=== PATIENT | male | born 1980 | race Caucasian/White ===

== ENCOUNTER 2019-07-19 12:42 | Emergency (ER) | payer OTHER, MEDICARE, SELFPAY ==
[2019-07-19 12:55] VITALS: BP 127/89; PULSE 60; RESP 16; TEMP 36.6; O2SAT 98; BMI 33.1
--- NOTE | 2019-07-19 13:04 | XR_ITS ---
WS: [id number] PORTABLE CHEST HISTORY: cough COMPARISON: 08/29/2013 Lungs are clear and well expanded. No pleural effusion or pneumothorax. Cardiac size: Normal. Mediastinum/Aorta: Normal mediastinum. No osseous abnormality seen. XR/XR chest 1V portable [id number] IMPRESSION: Unremarkable portable chest.
--- NOTE | 2019-07-19 13:05 | ECG_ITS ---
Measurements Intervals [place] Rate: 72 P: 55 [place]: 126 QRS: 26 QRSD: 109 T: -6 QT: 372 QTc: 408 SINUS RHYTHM WITH SINUS ARRHYTHMIA NONSPECIFIC T-WAVE ABNORMALITY Compared to ECG 12/02/2014 10:02:15 T-wave abnormality now present Electronically Signed On 07-19-2019 20:33:02 CDT by Josemanuel Freeman M.D. [id number] f
--- NOTE | 2019-07-19 13:12 | W.ED.CHESTPA ---
HPI - Chest Pain General: Chief Complaint: Chest Pain Stated Complaint: CP Time Seen by Provider: 07/19/19 13:04 History of Present Illness: HPI narrative: David is a very nice 38-year-old male who comes in complaining of right-sided chest pain. He describes the pain as a throbbing sensation. It has been constant and never gone away in the past 3 days. It does not wax and wane in intensity and stays the same. There are no exacerbating or alleviating factors. He states he has had similar symptoms over the past year and a half but nothing like the past 3 days. The patient states it hurts more to smoke upon further questioning but nothing makes it better. Patient denies any fevers, chills, hemoptysis, unexplained weight loss or other complaints. The patient simply went to the [facility] today for [facility] to help [facility]. He denies history of heart disease, family history of heart problems and he personally denies a history of DVT/PE. Associated symptoms: Deny abdominal pain, diaphoresis, dyspnea, fever(s), nausea, palpitations, syncope or vomiting Review of Systems Const: Denies: fever(s), chills, body aches, fatigue, malaise, night sweats or diaphoresis Eyes: Denies: change in vision, blurry vision or blind spots ENMT: Denies: throat pain, odynophagia, hoarseness, ear or mastoid pain, ear discharge, change in hearing or nasal discharge Card: Reports: chest pain; Denies: palpitations, irregular heart rhythm, lightheadedness, syncope, pre-syncope, dyspnea on exertion or orthopnea Resp: Denies: dyspnea, productive cough, non-productive cough, wheezing, hemoptysis or chest congestion GI: Denies: abdominal pain, nausea, vomiting, hematemesis, coffee ground emesis, heartburn, diarrhea, constipation, GI cramping, hematochezia or melena : Denies: flank pain, dysuria, urinary frequency, urinary urgency, oliguria, urinary incontinence or hematuria Musc: Denies: neck pain, back pain, extremity pain, extremity swelling, joint pain, joint swelling, joint redness, joint warmth or joint stiffness Skin/Breast: Denies: rash, pruritus, erythema, skin tenderness or jaundice Neuro: Denies: headache(s), numbness in extremities, weakness in extremities, sensory changes, lack of coordination, difficulty walking, dizziness, vertigo, confusion or Slurred speech present Endo: Denies: polyuria, polydipsia, tired all the time, cold intolerance, excessive sweating, flushing, hot flashes or heat intolerance Chinedu/Lymph: Denies: easy bruising, easy bleeding, petechiae, purpura or enlarged lymph nodes All/Imm: Denies: urticaria, throat swelling, tongue swelling, facial swelling or acute wheezing PFSH ED PFSH: Medical History (Updated 07/19/19 @ 13:57 by Ameena Willett) Hyperlipidemia Family History (Updated 07/19/19 @ 13:14 by Ameena Willett) Denies family history of CAD (coronary artery disease) Family history of premature coronary artery disease Social History Smoking and tobacco status: current every day smoker Physical Exam Const: COMMON NORMALS: no acute distress, patient oriented x3, no limitations, healthy appearing and well nourished EXAM LIMITATIONS: no altered mental status GENERAL APPEARANCE: cooperative, well kempt and well developed HENMT: COMMON NORMALS: normocephalic, atraumatic, hearing grossly normal bilaterally, external ears normal, EAC's normal, Normal external nose present and moist oral mucous membranes HEAD & SCALP: normal to inspection, normocephalic and atraumatic FACE & SINUS: normal facial exam and face symmetric NOSE: Normal external nose present and Normal nares present EXTERNAL EAR: Yes external ears normal EXTERNAL AUDITORY CANAL: EAC's normal MOUTH: Normal oral and palatal mucosa present, lip normal and tongue normal Eye: COMMON NORMALS: Equal, round and reactive pupils present, EOMs intact bilaterally, conjunctivae normal and no scleral icterus GENERAL EYE: appearance normal, both eyes and all related structures and normal light reflex ALIGNMENT: Yes alignment normal PERIORBITAL: periorbital findings normal EYELID: eyelids normal CONJUNCTIVA: Yes conjunctivae normal SCLERA: sclerae normal PUPIL: Yes Equal, round and reactive pupils present DIRECT OPHTHALMOSCOPY: Yes normal light reflex Neck/C-Spine: COMMON NORMALS: full ROM, no lymphadenopathy, supple, no meningeal signs and no JVD GENERAL: Yes normal visual inspection and Yes trachea midline CERVICAL SPINE: Yes cervical ROM normal Chest: COMMONS NORMALS: normal inspection of the chest and normal palpation of entire chest wall Resp: COMMON NORMALS: normal respiratory effort, No retractions, No use of accessory muscles and clear to auscultation bilaterally EFFORT & INSPECTION: Yes able to speak in complete sentences AUSCULTATION: clear to auscultation bilaterally, no crackles, no rales, no rhonchi and no wheezes Cardio: COMMON NORMALS: no JVD, regular rate, regular rhythm, S1 normal heart sound present, S2 normal heart sound present, No gallops present (Cardio), No clicks present (Cardio), No murmurs present (Cardio) and No rub (Cardio) RATE: regular rate RHYTHM: regular rhythm HEART SOUNDS: S1 normal heart sound present, S2 normal heart sound present, no click, no gallops, no murmurs and no rubs GI: COMMON NORMALS: Soft to palpation, non-tender, No hepatosplenomegaly present and no masses PALPATION: Yes Soft to palpation, No Tenderness to palpation present (GI), No Guarding due to palpation present (GI), No Rigid due to palpation, Yes No hepatosplenomegaly present, No Hernia present, No Palpable mass present and No Pulsatile mass present : COMMON NORMALS: Yes no CVA tenderness BLADDER/KIDNEY EXAM: Yes no CVA tenderness Back/Pelvis: COMMON NORMALS: no CVA tenderness, thoracic and lumbar spine normal to inspection, no thoracic nor lumbar tenderness and thoraco-lumbar ROM normal Extremity: COMMON NORMALS: normal to inspection, full ROM, capillary refill normal, no joint enlargement, no clubbing, cyanosis or edema and no calf tenderness Neuro: LEONOR COMA SCALE: document GCS findings [place] coma scale eye opening: Spontaneous [place] coma scale verbal response: Orientated [place] coma scale motor response: Obey commands [place] coma scale total score: 15 COMMON NORMALS: patient oriented x3, CN's II-XII intact bilaterally, moves all extremities, no focal motor deficits and no sensory deficits noted MENINGEAL SIGNS: Yes no meningeal signs SPEECH: speech normal Psych: COMMON NORMALS: mental status grossly normal, Normal thought process present, cooperative, normal affect, speech normal and activity/motor behavior normal APPEARANCE: Yes well kempt SPEECH: Yes normal speech THOUGHT PROCESS: Normal thought process present Skin: COMMON NORMALS: no rashes or lesions noted, turgor normal, no jaundice, no petechiae and no mottling GENERAL SKIN EXAM: no rashes or lesions noted and turgor normal Course Vital Signs: Vital signs: Vital Signs Temperature 97.8 F 07/19/19 12:55 Pulse Rate 58 L 07/19/19 13:52 Respiratory Rate 16 07/19/19 13:52 Blood Pressure 139/87 07/19/19 13:52 Pulse Oximetry 98 07/19/19 13:52 MDM - Chest Pain MDM Narrative: Medical decision making narrative: Mr. Ordoñez is a nice 38-year-old male who comes in with constant chest pain in his right chest for the past 3 days. He has a normal EKG and normal troponin which per hospital protocol and per literature rules out his heart as a cause. The patient is PERC rule negative. He declines any further evaluation care and would like to be discharged. Patient has no description of ripping or tearing or migration of pain in the timing of his chest pain rules out a dissection. PE has been ruled out by the PERC rule. Per hospital protocol the the patient has been ruled out for ACS. Patient agrees to return should his symptoms change or worsen but he wants to follow-up with his doctor for recheck. Lab Data: Labs: Lab Results 07/19/19 07/19/19 07/19/19 Range/Units 13:14 13:14 13:14 WBC 6.7 (4.0-10.0) 10^3/ uL RBC 5.31 H (4.1-5.3) 10^6/u L Hgb 16.9 H (11.7-16.6) g/dL Hct 51.1 (42.0-52.0) % MCV 96.2 H (80-94) fL MCH 31.8 (28.0-34.0) pg MCHC 33.1 (30.0-36.0) g/dL RDW 12.0 L (12.1-15.1) % Plt Count 174 (130-400) 10^3/c mm MPV 10.9 H (7.4-10.4) fL Neut % (Auto) 63.7 % Lymph % (Auto) 28.2 % Andrews % (Auto) 6.4 % Eos % (Auto) 1.0 % Baso % (Auto) 0.4 % Neut # (Auto) 4.3 (1.8-7.7) 10^3/u L Lymph # (Auto) 1.9 (0.8-4.8) 10^3/u L Andrews # (Auto) 0.4 (0.2-0.9) 10^3/u L Eos # (Auto) 0.1 (0.0-0.8) 10^3/u L Baso # (Auto) 0.0 (0.0-0.1) 10^3/u L Nucleated RBC % (a uto) 0 % Nucleated RBCs # 0.0 /100WBC Sodium 138 (136-145) mmol/L Potassium 4.2 (3.5-5.1) mmol/L Chloride 102 (98-107) mmol/L Carbon Dioxide 26 (22-29) mmol/L Anion Gap 14.2 (5-19) BUN 16 (6-20) mg/dL Creatinine 1.0 (0.7-1.2) mg/dL GFR Calculation 82.8 L (90-130) mL/min Glucose 101 (65-115) mg/dL Calculated Osmolal ity 282 L (285-295) mOsm/k g Calcium 10.7 H (8.5-10.5) mg/dL Magnesium 2.1 (1.7-2.3) mg/dL Total Bilirubin 0.4 (0.15-1.2) mg/dL AST 15 (0-40) U/L ALT 26 (0-41) U/L Alkaline Phosphata se 65 (40-130) IU/L Troponin T Baselin e 6 (0-15) ng/mL Total Protein 7.9 (6.6-8.7) g/dL Albumin 4.8 (3.5-5.2) g/dL Globulin 3.1 (1.3-4.6) g/dL Lipase 22 (13-60) U/L Imaging Data^: CXR: My impression: No acute cardiopulmonary findings. EKG Data^: EKG 1: Attestation: I personally reviewed and interpreted this EKG as follows: EKG interpretation date: 07/19/19 EKG interpretation time: 12:51 Interpretation: Normal sinus rhythm with sinus arrhythmia at 72 beats a minute, normal axis, no acute ST or T wave changes. Discharge Plan Discharge Patient Disposition: Home, Self-Care Clinical Impression: Chest pain Qualifiers: Chest pain type: unspecified Qualified Code(s): R07.9 - Chest pain, unspecified Condition: Stable Discharge Orders: Discharge Order (Routine); Ordered 07/19/19 Ordered By: Ameena Willett Referrals: Driss Gill DO [Primary Care Provider] - 1-3 days Discharge Diet: Advance as tolerated Discharge Activity: Increase activity as tolerated Patient Instructions: Chest Pain (ED) Activity Restrictions/Additional Instructions: Please return to the ER immediately for any of the signs or symptoms listed on your discharge instruction sheets, worsening/changing of your symptoms, you are not getting better as quickly as expected, or for ANY other cause or concerns. You have been offered further evaluation and care of your heart but have declined. If you change your mind or your symptoms change/worsen you are welcome to return here at any time for further evaluation and care. Be certain to follow-up with Dr. Gill in the next 1 to 2 days for recheck. Coding Level of Care Code ED Leather Scraper for Neri Fwd Exam Comprehensive
[2019-07-19 13:25] LABS: Basophils % 0.4 %; Eosinophils # 0.1 10^3/uL (0.0-0.8); Hematocrit 51.1 % (42.0-52.0); Hemoglobin 16.9 g/dL (11.7-16.6); Lymphocytes # 1.9 10^3/uL (0.8-4.8); Lymphocytes % 28.2 %; Mean Corpuscular HGB Conc 33.1 g/dL (30.0-36.0); Mean Corpuscular Hemoglobin 31.8 pg (28.0-34.0); Mean Corpuscular Volume 96.2 fL (80-94); Mean Platelet Volume 10.9 fL (7.4-10.4); Monocytes # 0.4 10^3/uL (0.2-0.9); Monocytes % 6.4 %; Neutrophils # 4.3 10^3/uL (1.8-7.7); Neutrophils % 63.7 %; Nucleated Red Blood Cells % 0 %; Platelet Count 174 10^3/cmm (130-400); Red Blood Count 5.31 10^6/uL (4.1-5.3); White Blood Count 6.7 10^3/uL (4.0-10.0)
[2019-07-19 13:35] LABS: Alanine Aminotransferase 26 U/L (0-41); Albumin Level 4.8 g/dL (3.5-5.2); Alkaline Phosphatase 65 IU/L (40-130); Anion Gap 14.2 (5-19); Aspartate Amino Transferase 15 U/L (0-40); Blood Urea Nitrogen 16 mg/dL (6-20); Calcium 10.7 mg/dL (8.5-10.5); Carbon Dioxide 26 mmol/L (22-29); Chloride 102 mmol/L (98-107); Globulin 3.1 g/dL (1.3-4.6); Glomerular Filtration Rate 82.8 mL/min (90-130); Glucose 101 mg/dL (65-115); Lipase 22 U/L (13-60); Magnesium 2.1 mg/dL (1.7-2.3); Osmolality Calculated 282 mOsm/kg (285-295); Potassium 4.2 mmol/L (3.5-5.1); Sodium 138 mmol/L (136-145); Total Bilirubin 0.4 mg/dL (0.15-1.2); Total Protein 7.9 g/dL (6.6-8.7)
[2019-07-19 13:39] LABS: Troponin(5th) Baseline 6 ng/mL (0-15)
[2019-07-19] MEDS: aspirin 325 mg Tablet PO (13:51)
[2019-07-19 13:52] VITALS: BP 139/87; PULSE 58; RESP 16; O2SAT 98
== END 2019-07-19 14:24 | disposition home or self-care (01) ==
PROVIDERS: Emergency Provider Emergency Medicine; PCP Electrodiagnostic Medicine
DX: R07.9 Chest pain, unspecified (principal); E78.5 Hyperlipidemia, unspecified; F17.210 Nicotine dependence, cigarettes, uncomplicated
CPT/HCPCS: 12345; 36415; 71045; 80053; 83690; 83735; 84484; 85025; 93005; 99282; 99284

== ENCOUNTER 2020-07-08 21:14 | Emergency (ER) | payer MEDICARE, OTHER, SELFPAY ==
[2020-07-08 22:17] VITALS: BP 136/74; PULSE 87; RESP 19; TEMP 36.6; O2SAT 96; BMI 32.8
--- NOTE | 2020-07-08 22:55 | W.ED.ABDPA2 ---
HPI - Abdominal Pain General: Chief Complaint: Abdominal Pain Stated Complaint: ab pain Time Seen by Provider: 07/08/20 22:49 History of Present Illness: HPI narrative: Patient is a 39-year-old male comes to the ED with abdominal pain nausea and vomiting. Patient says symptoms started this morning and have progressively gotten worse. He has not been able to keep any food or fluids down and tried to take his Phenergan today and he was not able to keep that down as well. The pain is located in the upper abdomen. Patient says he has never had abdominal pain like this before. He does have a history of acid reflux. Denies any fever, chills, diarrhea constipation. Associated Symptoms: Reports nausea and vomiting; Denies chills, constipation, diarrhea, dysuria, fever(s), hematochezia and hematuria Review of Systems Const: Denies: fever(s), chills or fatigue Eyes: Denies: change in vision or eye discomfort ENMT: Denies: throat pain, odynophagia, nasal discharge or nasal congestion Card: Denies: chest pain, palpitations, edema, swelling of feet/ankles, dyspnea on exertion or orthopnea Resp: Denies: dyspnea, productive cough or non-productive cough GI: Reports: abdominal pain, nausea and vomiting; Denies: diarrhea, constipation or hematochezia : Denies: flank pain, difficulty urinating, dysuria or hematuria Musc: Denies: neck pain, back pain or extremity swelling Skin/Breast: Denies: rash or new lesions Neuro: Denies: headache(s), numbness in extremities or weakness in extremities PFSH ED PFSH: Medical History Anxiety disorder Hyperlipidemia Major depressive disorder PTSD (post-traumatic stress disorder) Surgical History History of appendectomy Family History Denies family history of CAD (coronary artery disease) Anesthesia complication Bleeding disorder Family history of premature coronary artery disease Social History Smoking and tobacco status: current every day smoker Alcohol intake: current Alcohol intake frequency: holidays/special occasions only Physical Exam Const: COMMON NORMALS: no acute distress, patient oriented x3, healthy appearing and alert GENERAL APPEARANCE: cooperative and comfortable HENMT: COMMON NORMALS: normocephalic HEAD & SCALP: normocephalic MOUTH: Normal oral and palatal mucosa present THROAT: posterior oropharynx normal and uvula midline Neck/C-Spine: COMMON NORMALS: supple GENERAL: Yes normal visual inspection Resp: COMMON NORMALS: normal respiratory effort, No retractions, No use of accessory muscles and clear to auscultation bilaterally AUSCULTATION: clear to auscultation bilaterally Cardio: COMMON NORMALS: regular rate, regular rhythm, S1 normal heart sound present, S2 normal heart sound present, No gallops present (Cardio), No clicks present (Cardio), No murmurs present (Cardio) and Peripheral pulses 2+ throughout RATE: regular rate RHYTHM: regular rhythm HEART SOUNDS: S1 normal heart sound present and S2 normal heart sound present PERIPHERAL PULSES: Peripheral pulses 2+ throughout GI: COMMON NORMALS: Normal to inspection, nondistended, normoactive bowel sounds present, Soft to palpation and no masses PALPATION: Yes Soft to palpation and Yes Tenderness to palpation present (GI) Details: RUQ (Positive Michael sign) and other (Epigastric region) : COMMON NORMALS: Yes no CVA tenderness BLADDER/KIDNEY EXAM: Yes no CVA tenderness Back/Pelvis: COMMON NORMALS: no CVA tenderness Extremity: COMMON NORMALS: normal to inspection and no pedal edema Neuro: COMMON NORMALS: patient oriented x3 SENSORIUM/ORIENTATION: Yes alert GAIT: Yes Normal gait present Skin: GENERAL SKIN EXAM: dry skin Course Reevaluation(s): Reevaluation #1: Patient's symptoms resolved after IV fluids, Zofran, Dilaudid. Patient was resting comfortably on the exam bed. Vital Signs: Vital signs: Vital Signs Temperature 97.9 F 07/08/20 22:17 Pulse Rate 66 07/09/20 01:48 Respiratory Rate 16 07/09/20 01:48 Blood Pressure 115/68 07/09/20 01:48 Pulse Oximetry 97 07/09/20 01:48 MDM - Abdominal Pain MDM Narrative: Medical decision making narrative: Patient is a 39-year-old male who comes to the ED with some abdominal pain nausea vomiting. Vitals are stable and exam showed some right upper quadrant and upper abdominal tenderness in epigastric region. White blood cell count 12.2 and the rest of CBC and CMP were unremarkable. H. pylori negative. ultrasound of gallbladder showed no acute gallbladder findings and no sludge or stones seen. CBD was normal. CT of abdomen pelvis showed some mild descending and sigmoid colitis. Patient was diagnosed with colitis and gastritis and discharged home with a prescription for ciprofloxacin, Flagyl, Pepcid and Zofran. He was told to follow-up with his PCP in 7 to 10 days for reevaluation. Return to ED precautions given. Patient understood and agreed with plan. Lab Data: Attestation: I reviewed the patient's lab results. Labs: Lab Results 07/08/20 07/08/20 07/08/20 Range/Units 23:14 23:14 23:15 WBC 12.2 H (4.0-10.0) 10^3/ uL RBC 5.13 (4.1-5.3) 10^6/u L Hgb 16.2 (11.7-16.6) g/dL Hct 48.2 (42.0-52.0) % MCV 94.0 (80-94) fL MCH 31.6 (28.0-34.0) pg MCHC 33.6 (30.0-36.0) g/dL RDW 12.2 (12.1-15.1) % Plt Count 194 (130-400) 10^3/c mm MPV 10.1 (7.4-10.4) fL Neut % (Auto) 76.3 % Lymph % (Auto) 16.6 % [place] % (Auto) 5.6 % Eos % (Auto) 0.7 % Baso % (Auto) 0.4 % Neut # (Auto) 9.33 H (1.8-7.7) 10^3/u L Lymph # (Auto) 2.0 (0.8-4.8) 10^3/u L [place] # (Auto) 0.7 (0.2-0.9) 10^3/u L Eos # (Auto) 0.1 (0.0-0.8) 10^3/u L Baso # (Auto) 0.1 (0.0-0.1) 10^3/u L Nucleated RBC % (a uto) 0 % Nucleated RBCs # 0.0 /100WBC Sodium 138 (136-145) mmol/L Potassium 3.9 (3.5-5.1) mmol/L Chloride 102 (98-107) mmol/L Carbon Dioxide 27 (22-29) mmol/L Anion Gap 12.9 (5-19) BUN 17 (6-20) mg/dL Creatinine 0.8 (0.7-1.2) mg/dL GFR Calculation 106.5 (90-130) mL/min Glucose 80 (65-115) mg/dL Calculated Osmolal ity 287 (285-295) mOsm/k g Calcium 9.9 (8.5-10.5) mg/dL Total Bilirubin 0.3 (0.15-1.2) mg/dL AST 16 (0-40) U/L ALT 25 (0-41) U/L Alkaline Phosphata se 76 (40-130) IU/L Total Protein 7.7 (6.6-8.7) g/dL Albumin 5.1 (3.5-5.2) g/dL Globulin 2.6 (1.3-4.6) g/dL Lipase 18 (13-60) U/L Urine Color (Yellow) Urine Appearance (CLEAR) Urine pH (5-7) Ur Specific Gravit y (1.005-1.030) Urine Protein (Negative) Urine Glucose (UA) (Normal) Urine Ketones (Negative) Urine Blood (Negative) Urine Nitrate (Negative) Urine Bilirubin (Negative) Urine Urobilinogen (Negative) mg/dL Ur Leukocyte Rosa M ase (Negative) Urine RBC (0-2) /hpf Urine WBC (0-5) /hpf Ur Squamous Epith Cells (0-5) /hpf Amorphous Sediment Urine Bacteria (NONE) /hpf Urine Mucus /hpf H. pylori IgG Anti body Negative (Negative) 07/09/20 Range/Units 00:09 WBC (4.0-10.0) 10^3/ uL RBC (4.1-5.3) 10^6/u L Hgb (11.7-16.6) g/dL Hct (42.0-52.0) % MCV (80-94) fL MCH (28.0-34.0) pg MCHC (30.0-36.0) g/dL RDW (12.1-15.1) % Plt Count (130-400) 10^3/c mm MPV (7.4-10.4) fL Neut % (Auto) % Lymph % (Auto) % [place] % (Auto) % Eos % (Auto) % Baso % (Auto) % Neut # (Auto) (1.8-7.7) 10^3/u L Lymph # (Auto) (0.8-4.8) 10^3/u L [place] # (Auto) (0.2-0.9) 10^3/u L Eos # (Auto) (0.0-0.8) 10^3/u L Baso # (Auto) (0.0-0.1) 10^3/u L Nucleated RBC % (a uto) % Nucleated RBCs # /100WBC Sodium (136-145) mmol/L Potassium (3.5-5.1) mmol/L Chloride (98-107) mmol/L Carbon Dioxide (22-29) mmol/L Anion Gap (5-19) BUN (6-20) mg/dL Creatinine (0.7-1.2) mg/dL GFR Calculation (90-130) mL/min Glucose (65-115) mg/dL Calculated Osmolal ity (285-295) mOsm/k g Calcium (8.5-10.5) mg/dL Total Bilirubin (0.15-1.2) mg/dL AST (0-40) U/L ALT (0-41) U/L Alkaline Phosphata se (40-130) IU/L Total Protein (6.6-8.7) g/dL Albumin (3.5-5.2) g/dL Globulin (1.3-4.6) g/dL Lipase (13-60) U/L Urine Color Yellow (Yellow) Urine Appearance Clear (CLEAR) Urine pH 5 (5-7) Ur Specific Gravit y 1.025 (1.005-1.030) Urine Protein Neg (Negative) Urine Glucose (UA) Norm (Normal) Urine Ketones Negative (Negative) Urine Blood Neg (Negative) Urine Nitrate Negative (Negative) Urine Bilirubin Neg (Negative) Urine Urobilinogen 1 H (Negative) mg/dL Ur Leukocyte Rosa M ase Negative (Negative) Urine RBC 0-4 H (0-2) /hpf Urine WBC 0-4 H (0-5) /hpf Ur Squamous Epith Cells 0-4 H (0-5) /hpf Amorphous Sediment Not Reportable Urine Bacteria Trace (NONE) /hpf Urine Mucus 2+ /hpf H. pylori IgG Anti body (Negative) Imaging Data ^: US: Attestation: I personally reviewed and interpreted this imaging study as follows: Radiologist's impression: Ultrasound gallbladder?prelim report normal gallbladder with no wall thickening, no sludge or stones seen. CBD normal. CT Abd/Pel: Attestation: I personally reviewed and interpreted this imaging study as follows: Radiologist's impression: [id number] [address] [address] Scan Report Signed Patient: David Ordoñez Unit #: [id number] : 1980 Age/Sex: 39 / M ADM Date: 07/08/20 Loc: ER Room/Bed: Attending Dr: Ordering Provider/Ordering MD: Manish Ray Date of Service: 07/09/20 Procedure(s): CT abdomen pelvis w con* [id number] Accession Number(s): [id number] Report Number: [id number] PROCEDURE INFORMATION: Exam: CT Abdomen And Pelvis With Contrast Exam date and time: 07/09/2020 12:21 AM Age: 39 years old Clinical indication: Nausea and vomiting; Abdominal pain; Prior surgery; Surgery type: Appy; Patient HX: Generalized abd pain with n/v; Additional info: Upper abdominal pain, n/v TECHNIQUE: Imaging protocol: Computed tomography of the abdomen and pelvis with contrast. Radiation optimization: All CT scans at this facility use at least one of these dose optimization techniques: automated exposure control; mA and/or kV adjustment per patient size (includes targeted exams where dose is matched to clinical indication); or iterative reconstruction. Contrast material: OMNI 300; Contrast volume: 95 ml; Contrast route: INTRAVENOUS (IV); COMPARISON: CT Abdomen/Pelvis Renal [id number] 10/11/2017 4:36 PM RADIATION DOSE METRICS: Total DLP (mGy-cm): 1793.33 FINDINGS: Lungs: There are multiple calcified pulmonary nodules consistent with prior granulomatous disease. Liver: Normal. No mass. Gallbladder and bile ducts: No wall thickening, pericholecystic fluid or stones. Pancreas: Normal. No ductal dilation. Spleen: Normal. No splenomegaly. Adrenal glands: Normal. No mass. Kidneys and ureters: Normal. No hydronephrosis. Stomach and bowel: There is mild mild thickening of the wall of the sigmoid and descending colon with pericolonic fat stranding. Appendix: Appendix has been removed. Intraperitoneal space: Unremarkable. No free air. No significant fluid collection. Vasculature: Unremarkable. No abdominal aortic aneurysm. Lymph nodes: Unremarkable. No enlarged lymph nodes. Urinary bladder: Unremarkable as visualized. Reproductive: Unremarkable as visualized. Bones/joints: Unremarkable. No acute fracture. Soft tissues: Unremarkable. CT/CT abdomen pelvis w con* [id number] IMPRESSION: Mild descending and sigmoid colitis. Radiation Dose CTDIVOL = (mGy): DLP = 1793.33 (mGy-cm) Dictated By: Segundo Andujar Signed By: Segundo Andujar Signed Date/Time: 07/09/2057 DD/ Discharge Plan Discharge Patient Disposition: Home Clinical Impression: Colitis Gastritis Qualifiers: Gastritis type: unspecified gastritis Chronicity: acute Gastritis bleeding: without bleeding Qualified Code(s): K29.00 - Acute gastritis without bleeding Condition: Stable Prescriptions: New dicyclomine 20 mg tablet 20 mg PO QID Qty: 20 RF: 0 ondansetron 4 mg tablet,disintegrating 4 mg PO Q8H PRN (Reason: nausea and vomiting) Qty: 20 RF: 0 Pepcid 20 mg tablet 20 mg PO BID 42 Days Qty: 84 RF: 0 ciprofloxacin HCl 500 mg tablet 500 mg PO BID 7 Days Qty: 14 RF: 0 Flagyl 500 mg tablet 500 mg PO Q8H 7 Days Qty: 21 RF: 0 No Action clonazepam 0.5 mg tablet 0.5 mg PO DAILY RF: 0 lidocaine 5 % adhesive patch,medicated 1 patch topical DAILY RF: 0 trazodone 100 mg tablet 150 mg PO DAILY RF: 0 Discharge Orders: Discharge ED (Routine); Ordered 07/09/20 Ordered By: Manish Ray Referrals: Driss Gill DO [Primary Care Provider] - Discharge Diet: Advance as tolerated and Clear Liquid Discharge Activity: Increase activity as tolerated Patient Instructions: Gastritis (ED), Gastroenteritis (ED), Infectious Colitis (ED) Activity Restrictions/Additional Instructions: Follow-up with medical provider as directed. Take medications as prescribed.Start with clear liquid diet then advance diet as tolerated. Return to the ER or your medical provider if condition worsens. Please read and understand discharge instructions. Thank you for choosing [facility] for your healthcare needs today. Please realize this is an emergency room and that we are providing you with a medical screening exam and this may not be complete and all inclusive of all the testing and or work up that you may need to determine your ailment or severity of your illness. It is very important that you follow up as instructed or that you return to the Emergency Department should you have concerns or if your condition changes or worsens in any way. Coding Level of Care Code ED Tube Washer for Neri Fwvera Exam Comprehensive
[2020-07-08] MEDS: sodium chloride 0.9% 1,000 ML 999 ML IV (23:09)
[2020-07-08] MEDS: metoclopramide 5 mg/mL SDV 2 mL 10 MG IVP (23:09)
--- NOTE | 2020-07-08 23:15 | US_ITS ---
WS: [id number] ULTRASOUND ABDOMEN LIMITED CLINICAL INFORMATION: RUQ pain, n/v COMPARISON: None. FINDINGS: Liver Size: Normal. Craniocaudal length: 15.6 cm. Echogenicity: Normal. Surface nodularity: None. Mass (size and location): None. Bile ducts Intrahepatic ducts: Normal. Common bile duct diameter: 0.3 cm. Gallbladder Normal. Gallstones: None. Gallbladder sludge: None. Gallbladder wall thickening: None. Pericholecystic fluid: None. Sonographic Michael sign: Absent. Pancreas Normal as visualized. Right kidney: Normal. Hydronephrosis: None. Size: 11.0 cm x 5.5 cm x 6.2 cm. Abdominal aorta and IVC Visualized portions are normal. Ascites: None. US/US gall bladder [id number] IMPRESSION: Normal abdominal ultrasound
[2020-07-08 23:19] LABS: Basophils # 0.1 10^3/uL (0.0-0.1); Basophils % 0.4 %; Eosinophils # 0.1 10^3/uL (0.0-0.8); Eosinophils % 0.7 %; Hematocrit 48.2 % (42.0-52.0); Hemoglobin 16.2 g/dL (11.7-16.6); Lymphocytes % 16.6 %; Mean Corpuscular HGB Conc 33.6 g/dL (30.0-36.0); Mean Corpuscular Hemoglobin 31.6 pg (28.0-34.0); Mean Platelet Volume 10.1 fL (7.4-10.4); Monocytes # 0.7 10^3/uL (0.2-0.9); Monocytes % 5.6 %; Neutrophils # 9.33 10^3/uL (1.8-7.7); Neutrophils % 76.3 %; Nucleated Red Blood Cells % 0 %; Platelet Count 194 10^3/cmm (130-400); Red Blood Count 5.13 10^6/uL (4.1-5.3); Red Cell Distribution Width 12.2 % (12.1-15.1); White Blood Count 12.2 10^3/uL (4.0-10.0)
[2020-07-08 23:30] LABS: H. Pylori IgG Antibody Negative (Negative)
[2020-07-08 23:34] VITALS: RESP 16
[2020-07-08] MEDS: HYDROmorphone 1 mg/mL INJ 1 mL IVP (23:34)
[2020-07-08 23:37] LABS: Alanine Aminotransferase 25 U/L (0-41); Albumin Level 5.1 g/dL (3.5-5.2); Alkaline Phosphatase 76 IU/L (40-130); Anion Gap 12.9 (5-19); Aspartate Amino Transferase 16 U/L (0-40); Blood Urea Nitrogen 17 mg/dL (6-20); Calcium 9.9 mg/dL (8.5-10.5); Carbon Dioxide 27 mmol/L (22-29); Chloride 102 mmol/L (98-107); Globulin 2.6 g/dL (1.3-4.6); Glomerular Filtration Rate 106.5 mL/min (90-130); Glucose 80 mg/dL (65-115); Lipase 18 U/L (13-60); Osmolality Calculated 287 mOsm/kg (285-295); Potassium 3.9 mmol/L (3.5-5.1); Sodium 138 mmol/L (136-145); Total Bilirubin 0.3 mg/dL (0.15-1.2); Total Protein 7.7 g/dL (6.6-8.7)
[2020-07-08 23:49] VITALS: BP 123/76; PULSE 82; RESP 18; O2SAT 92
--- NOTE | 2020-07-08 23:50 | PC.NURSE ---
Pt resting comfortably in bed. US @ bedside. UA requested from pt.
--- NOTE | 2020-07-09 00:18 | CTR_ITS ---
PROCEDURE INFORMATION: Exam: CT Abdomen And Pelvis With Contrast Exam date and time: 07/09/2020 12:21 AM Age: 39 years old Clinical indication: Nausea and vomiting; Abdominal pain; Prior surgery; Surgery type: Appy; Patient HX: Generalized abd pain with n/v; Additional info: Upper abdominal pain, n/v TECHNIQUE: Imaging protocol: Computed tomography of the abdomen and pelvis with contrast. Radiation optimization: All CT scans at this facility use at least one of these dose optimization techniques: automated exposure control; mA and/or kV adjustment per patient size (includes targeted exams where dose is matched to clinical indication); or iterative reconstruction. Contrast material: OMNI 300; Contrast volume: 95 ml; Contrast route: INTRAVENOUS (IV); COMPARISON: CT Abdomen/Pelvis Renal [id number] 10/11/2017 4:36 PM RADIATION DOSE METRICS: Total DLP (mGy-cm): 1793.33 FINDINGS: Lungs: There are multiple calcified pulmonary nodules consistent with prior granulomatous disease. Liver: Normal. No mass. Gallbladder and bile ducts: No wall thickening, pericholecystic fluid or stones. Pancreas: Normal. No ductal dilation. Spleen: Normal. No splenomegaly. Adrenal glands: Normal. No mass. Kidneys and ureters: Normal. No hydronephrosis. Stomach and bowel: There is mild mild thickening of the wall of the sigmoid and descending colon with pericolonic fat stranding. Appendix: Appendix has been removed. Intraperitoneal space: Unremarkable. No free air. No significant fluid collection. Vasculature: Unremarkable. No abdominal aortic aneurysm. Lymph nodes: Unremarkable. No enlarged lymph nodes. Urinary bladder: Unremarkable as visualized. Reproductive: Unremarkable as visualized. Bones/joints: Unremarkable. No acute fracture. Soft tissues: Unremarkable. CT/CT abdomen pelvis w con* [id number] IMPRESSION: Mild descending and sigmoid colitis. Radiation Dose CTDIVOL = (mGy): DLP = 1793.33 (mGy-cm)
[2020-07-09 00:20] LABS: Bacteria Urine TRACE /hpf; Bilirubin Urine Neg (Negative); Blood Urine Neg (Negative); Glucose Urine UA Norm (Normal); Ketones Urine Negative (Negative); Leukocyte Esterase Urine Negative (Negative); Nitrate Urine Negative (Negative); Protein Urine Neg (Negative); RBC Urine 0-4 /hpf (0-2); Specific Gravity, Urine 1.025 (1.005-1.030); Squamous Epithelial Cell Urine 0-4 /hpf (0-5); Urine Appearance Clear (CLEAR); Urine Color Yellow (Yellow); Urobilinogen Urine 1 mg/dL (Negative); WBC Urine 0-4 /hpf (0-5); pH Urine 5 (5-7)
[2020-07-09 00:21] LABS: Mucus Urine 2+ /hpf
[2020-07-09] MEDS: iohexol 300 mg/mL 100 mL Btl IV (00:31)
[2020-07-09] MEDS: ciprofloxacin 500 mg Tablet PO (01:42)
[2020-07-09] MEDS: lidocaine 2% viscous 15 ML, aluminum-mag hydrox-simethicon 30 ML, sucralfate oral liq 1 GM PO (01:43)
[2020-07-09] MEDS: metroNIDAZOLE 500 MG Tablet PO (01:43)
[2020-07-09] MEDS: ondansetron 2 mg/ML SDV 2 mL 4 MG IVP (01:44)
[2020-07-09 01:47] VITALS: RESP 16; O2SAT 97
[2020-07-09] MEDS: HYDROmorphone 1 mg/mL INJ 1 mL 0.5 MG IVP (01:47)
[2020-07-09 01:48] VITALS: BP 115/68; PULSE 66; RESP 16; O2SAT 97
== END 2020-07-09 02:00 | disposition home or self-care (01) ==
PROVIDERS: Emergency Provider Physician Assistant; PCP Electrodiagnostic Medicine
DX: K29.00 Acute gastritis without bleeding (principal); K52.9 Noninfective gastroenteritis and colitis, unspecified; E78.5 Hyperlipidemia, unspecified; F17.210 Nicotine dependence, cigarettes, uncomplicated
CPT/HCPCS: 74177; 76705; 80053; 81001; 83690; 85025; 86677; 96361; 96374; 96375; 96376; 99284; J1170; J2405; J2765; J7030; Q9967

== ENCOUNTER → 2022-02-18 13:43 | Outpatient (BNVA) | payer OTHER, SELFPAY | PROVIDERS: PCP Electrodiagnostic Medicine; Referring Provider Family Medicine; Visit Provider Nurse Practitioner Family | DX: S86.811A Strain of other muscle(s) and tendon(s) at lower leg level, right leg, initial encounter (principal); X50.0XXA Overexertion from strenuous movement or load, initial encounter | CPT/HCPCS: 99203 ==

== ENCOUNTER 2022-03-12 14:21 | Outpatient (CLI) | payer OTHER, SELFPAY ==
--- NOTE | 2022-03-12 14:30 | MR_ITS ---
WS: [id number] MRI OF THE RIGHT ELBOW WITHOUT GADOLINIUM ENHANCEMENT. INDICATION: Distal biceps injury TECHNIQUE: Coronal T1, coronal PD fat sat, coronal STIR, sagittal PD fat-sat, axial T1, T2, axial FSP GR FINDINGS: Normal bone marrow signal in the distal humerus. Normal bone marrow signal in the radius an d ulna. Normal coronoid process. Normal common flexor and extensor tendon origins. Normal medial epic ondyle. Normal lateral epicondyle. Normal trochlea. Normal capitellum. Normal radial head. No significant joint effusion. Normal olecranon bursa. Palpable marker along the antecubital fossa. B iceps tendon is intact. Increased T2 signal at the biceps tendon insertion on the radial tuberosity c onsistent with tendinopathy. Biceps tendon is otherwise intact. Biceps muscle belly appears normal. T his is at the edge of the [id number]. Brachialis tendon appears intact. Normal insertion on the ulna tuberosity. Brachialis tendon is somew hat diminutive compared to the biceps tendon but no increased signal or tendinopathy. Tendinopathy involving the distal triceps tendon insertion at the olecranon with slight irregularity. Triceps tendon appears intact. MR/MR elbow RT wo con* [id number] IMPRESSION: 1. Biceps brachi tendon appears intact. Small amount of tendinopathy at the ra dial tuberosity insertion. Insertion at the edge of the [id number]. 2. Brachialis tendon is intact although somewhat diminutive relative to the bi ceps tendon. This inserts normally on the ulnar tuberosity. 3. Common extensor and flexor tendon origins are intact. No tendinopathy. 4. Small amount of insertional tendinopathy involving the distal triceps at th e dorsal olecranon insertion. Slight olecranon spurring/enthesophyte. 5. No other remarkable findings.
== END 2022-03-12 14:22 | disposition home or self-care (01) ==
LOC: RAD 14:22
PROVIDERS: Visit Provider Nurse Practitioner Family
DX: M25.521 Pain in right elbow (principal)
CPT/HCPCS: 73221

== ENCOUNTER 2022-05-21 18:52 | Emergency (ER) | payer MEDICARE, OTHER, SELFPAY ==
[2022-05-21 19:00] VITALS: BP 177/83; PULSE 53; RESP 22; TEMP 36.6; O2SAT 100; BMI 33.6
--- NOTE | 2022-05-21 19:18 | W.ED.NAVMDI ---
HPI - Nausea/Vomiting/Diarrhea General: Chief complaint: Nausea/Vomiting/Diarrhea Stated complaint: n/v Time Seen by Provider: 05/21/22 19:09 Source: patient Mode of arrival: ambulatory Limitations: no limitations History of Present Illness: 43-year-old male states he has had some nausea and vomiting over the last 4 to 5 days but much worse today. He states he had hemorrhoidectomy 2 weeks ago he states that he did eat edibles 2 days ago and its when the vomiting worsened he states he had multiple episodes of vomiting with dry heaving he denies any fever denies any severe abdominal pain he just has diffuse cramping. Associated nausea: Yes Associated symtoms: Reports nausea; Denies chest pain, dysuria or headache(s) Review of Systems Const: Denies: fever(s), chills, body aches or change in appetite Eyes: Denies: blurry vision or eye discomfort ENMT: Denies: throat pain or dental pain Card: Denies: chest pain Resp: Denies: dyspnea GI: Reports: nausea and vomiting : Denies: dysuria Musc: Denies: neck pain or back pain Skin/Breast: Denies: rash Neuro: Denies: headache(s) Psych: Denies: depression [place]/Lymph: Denies: easy bruising All/Imm: Denies: urticaria PFSH ED PFSH: Medical History Agoraphobia with panic attacks Anxiety disorder Hyperlipidemia Major depressive disorder PTSD (post-traumatic stress disorder) Surgical History History of appendectomy History of colonoscopy History of tonsillectomy Family History Denies family history of CAD (coronary artery disease) Anesthesia complication Bleeding disorder Family history of premature coronary artery disease Social History Smoking and tobacco status: former smoker Alcohol intake: current Alcohol intake frequency: holidays/special occasions only Physical Exam Const: COMMON NORMALS: no acute distress, patient oriented x3 and healthy appearing HENMT: COMMON NORMALS: normocephalic and atraumatic HEAD & SCALP: normocephalic and atraumatic Eye: COMMON NORMALS: Equal, round and reactive pupils present and EOMs intact bilaterally PUPIL: Yes Equal, round and reactive pupils present Neck/C-Spine: COMMON NORMALS: full ROM and supple Chest: COMMONS NORMALS: normal inspection of the chest and normal palpation of entire chest wall Resp: COMMON NORMALS: normal respiratory effort, No retractions, No use of accessory muscles and clear to auscultation bilaterally AUSCULTATION: clear to auscultation bilaterally Cardio: COMMON NORMALS: regular rate, regular rhythm and No murmurs present (Cardio) RATE: regular rate RHYTHM: regular rhythm GI: COMMON NORMALS: Normal to inspection, nondistended, normoactive bowel sounds present, Soft to palpation, non-tender and no masses PALPATION: Yes Soft to palpation Extremity: COMMON NORMALS: normal to inspection and full ROM Neuro: COMMON NORMALS: patient oriented x3, moves all extremities and no focal motor deficits Psych: COMMON NORMALS: mental status grossly normal, Normal thought process present and cooperative THOUGHT PROCESS: Normal thought process present Skin: COMMON NORMALS: no rashes or lesions noted and no wounds GENERAL SKIN EXAM: no rashes or lesions noted Course Vital Signs: Vital signs: Vital Signs Temperature 97.9 F 05/21/22 19:00 Pulse Rate 78 05/21/22 21:27 Respiratory Rate 18 05/21/22 19:32 Blood Pressure 129/75 05/21/22 21:27 Pulse Oximetry 96 05/21/22 21:27 Oxygen Delivery Me thod 05/21/22 21:27 MDM - Nausea/Vomiting/Diarrhea Medical Decision Making Patient presents here with vomiting is likely cannabis induced he is improved he is able to tolerate p.o. CT scan shows no acute abnormalities he does have a leukocytosis that is likely reactive he is stable for discharge we will prescribe him nausea medicine I informed him he needs to stop using cannabis he is to follow-up with PCP and return if worsening. Lab Data 05/21/22 19:30 05/21/22 19:30 Radiology Impressions Abdomen/Pelvis CT 05/21/22 19:51 IMPRESSION: 1. Prominent fluid in the small bowel along with transverse and left colon wall thickening may reflect an enterocolitis in the appropriate clinical setting. 2. Prostate gland somewhat enlarged. 3. Right lower lobe atelectasis. 4. Mild cardiomegaly. 5. Hepatic steatosis. Laboratory Results WBC 19.9 10^3/uL (4.0-10.0) H 05/21/22 19:30 RBC 4.71 10^6/uL (4.1-5.3) 05/21/22: Hgb 14.7 g/dL (11.7-16.6) 05/21/22 19:30 Hct 43.4 % (42.0-52.0) 05/21/22: MCV 92.1 fl (80-94) 05/21/22: MCH 31.2 pg (28.0-34.0) 05/21/22: MCHC 33.9 g/dL (30.0-36.0) 05/21/22: RDW 12.4 % (12.1-15.1) 05/21/22: Plt Count 227 10^3/cmm (130-400) 05/21/22: MPV 10.6 fL (7.4-10.4) H 05/21/22: Neut % (Auto) 89.1 % 05/21/22: Lymph % (Auto) 7.2 % 05/21/22: [place] % (Auto) 3.1 % 05/21/22: Eos % (Auto) 0.0 % 05/21/22: Baso % (Auto) 0.2 % 05/21/22: Neut # (Auto) 17.76 10^3/uL (1.8-7.7) H 05/21/22: Lymph # (Auto) 1.4 10^3/uL (0.8-4.8) 05/21/22:30 [place] # (Auto) 0.6 10^3/uL (0.2-0.9) 05/21/22: Eos # (Auto) 0.0 10^3/uL (0.0-0.8) 05/21/22: Baso # (Auto) 0.0 10^3/uL (0.0-0.1) 05/21/22: Nucleated RBC % (auto) 0 % 05/21/22: Nucleated RBCs # 0.0 /100WBC 05/21/22 19:30 Sodium 142 mmol/L (136-145) 05/21/22 19:30 Potassium 3.9 mmol/L (3.5-5.1) 05/21/22 19: Chloride 102 mmol/L (98-107) 05/21/22 19:30 Carbon Dioxide 24 mmol/L (22-29) 05/21/22 19:30 Anion Gap 19.9 (5-19) H 05/21/22 19:30 BUN 17 mg/dL (6-20) 05/21/22 19:30 Creatinine 0.9 mg/dL (0.7-1.2) 05/21/22 19:30 GFR Calculation 92.1 mL/min (90-130) 05/21/22: Glucose 127 mg/dL (65-115) H 05/21/22: Calculated Osmolality 297 mOsm/kg (285-295) H 05/21/22: Calcium 10.4 mg/dL (8.5-10.5) 05/21/22: Total Bilirubin 0.4 mg/dL (0.15-1.2) 05/21/22 19:30 AST 17 U/L (0-40) 05/21/22:30 ALT 31 U/L (0-41) 05/21/22 19:30 Alkaline Phosphatase 73 U/L (40-130) 05/21/22 19:30 Total Protein 7.9 g/dL (6.6-8.7) 05/21/22 19: Albumin 5.0 g/dL (3.5-5.2) 05/21/22: Globulin 2.9 g/dL (1.3-4.6) 05/21/22 19:30 Lipase 17 U/L (13-60) 05/21/22 19:30 Urine Color Yellow (Yellow) 05/21/22 21:00 Urine Appearance Clear (CLEAR) 05/21/22 21:00 Urine pH 7 (5-7) 05/21/22 21:00 Ur Specific [place] 1.010 (1.005-1.030) 05/21/22 21:00 Urine Protein Neg (Negative) 05/21/22 21:00 Urine Glucose (UA) Norm (Normal) 05/21/22 21:00 Urine Ketones 1+ (Negative) H 05/21/22 21:00 Urine Blood Neg (Negative) 05/21/22 21:00 Urine Nitrate Negative (Negative) 05/21/22 21:00 Urine Bilirubin Neg (Negative) 05/21/22 21:00 Urine Urobilinogen Norm mg/dL (Negative) 05/21/22 21:00 Ur Leukocyte Esterase Negative (Negative) 05/21/22 21:00 Discharge Plan Discharge Patient Disposition: Home Clinical Impression: Vomiting Condition: Stable Prescriptions: New Reglan 10 mg tablet 10 mg PO Q6H PRN (Reason: nausea and vomiting) Qty: 20 0RF No Action clonazepam 0.5 mg tablet 0.5 mg PO DAILY lidocaine 5 % adhesive patch,medicated 1 patch topical DAILY Rx Instructions: leave on most painful area for up to 12 hrs trazodone 100 mg tablet 150 mg PO DAILY dicyclomine 20 mg tablet 20 mg PO QID Qty: 20 0RF Rx Instructions: Take for abdominal cramping or pain ondansetron 4 mg tablet,disintegrating 4 mg PO Q8H PRN (Reason: nausea and vomiting) Qty: 20 0RF Discharge Orders: Discharge ED (Routine); Ordered 05/21/22 Ordered By: Artur Nichols Referrals: Lexie Crenshaw MD [Primary Care Provider] - 1-3 days Discharge Diet: Advance as tolerated Discharge Activity: Resume usual activity Patient Instructions: Acute Nausea and Vomiting (ED) Coding Level of Care Code ED Cor[employer]ated Fastener Driver for Neri Singh
[2022-05-21 19:32] VITALS: RESP 18
[2022-05-21] MEDS: metoclopramide 5 mg/mL SDV 2 mL 10 MG IVP (19:32)
[2022-05-21] MEDS: sodium chloride 0.9% 1,000 ML 999 ML IV ×2 (19:32→21:23)
[2022-05-21] MEDS: morphine 4 mg/mL SDV 1 mL IVP (19:32)
[2022-05-21] MEDS: diphenhydrAMINE 50 mg/mL SDV 1mL IVP (19:32)
[2022-05-21 19:47] LABS: Basophils % 0.2 %; Hematocrit 43.4 % (42.0-52.0); Hemoglobin 14.7 g/dL (11.7-16.6); Lymphocytes # 1.4 10^3/uL (0.8-4.8); Lymphocytes % 7.2 %; Mean Corpuscular HGB Conc 33.9 g/dL (30.0-36.0); Mean Corpuscular Hemoglobin 31.2 pg (28.0-34.0); Mean Corpuscular Volume 92.1 fl (80-94); Mean Platelet Volume 10.6 fL (7.4-10.4); Monocytes # 0.6 10^3/uL (0.2-0.9); Monocytes % 3.1 %; Neutrophils # 17.76 10^3/uL (1.8-7.7); Neutrophils % 89.1 %; Nucleated Red Blood Cells % 0 %; Platelet Count 227 10^3/cmm (130-400); Red Blood Count 4.71 10^6/uL (4.1-5.3); Red Cell Distribution Width 12.4 % (12.1-15.1); White Blood Count 19.9 10^3/uL (4.0-10.0)
--- NOTE | 2022-05-21 19:51 | CTR_ITS ---
PROCEDURE INFORMATION: Exam: CT Abdomen And Pelvis With Contrast Exam date and time: 05/21/2022 8:06 PM Age: 41 years old Clinical indication: Nausea and vomiting; Abdominal pain; Generalized; Prior surgery; Surgery type: Appy. Hemorrhoidectomy; Patient HX: C/O diffuse abd pain with n/v. TECHNIQUE: Imaging protocol: Computed tomography of the abdomen and pelvis with contrast. Radiation optimization: All CT scans at this facility use at least one of these dose optimization techniques: automated exposure control; mA and/or kV adjustment per patient size (includes targeted exams where dose is matched to clinical indication); or iterative reconstruction. Contrast material: OMNI 350; Contrast volume: 100 ml; Contrast route: INTRAVENOUS (IV); REPORTING DATA: Count of CT and Cardiac NM exams in prior 12 months: This patient has received 0 known CTs and 0 known cardiac nuclear medicine studies in the 12 months prior to the current study. COMPARISON: CT abdomen pelvis w con* [id number] 07/09/2020 12:43 AM RADIATION DOSE METRICS: Total DLP (mGy-cm): 755.91 FINDINGS: Lungs: Right lower lobe atelectasis. Heart: Mild cardiomegaly. Liver: Hepatic steatosis. Gallbladder and bile ducts: Normal. No calcified stones. No ductal dilation. Pancreas: Normal. No ductal dilation. Spleen: Normal. No splenomegaly. Adrenal glands: Normal. No mass. Kidneys and ureters: Normal. No hydronephrosis. Stomach and bowel: Prominent fluid in the small bowel along with transverse and left colon wall thickening may reflect an enterocolitis in the appropriate clinical setting. Appendix: No evidence of appendicitis. Intraperitoneal space: Unremarkable. No free air. No significant fluid collection. Vasculature: Unremarkable. No abdominal aortic aneurysm. Lymph nodes: Unremarkable. No enlarged lymph nodes. Urinary bladder: Unremarkable as visualized. Reproductive: Prostate gland somewhat enlarged. Bones/joints: Unremarkable. No acute fracture. Soft tissues: Unremarkable. CT/CT abdomen pelvis w con* [id number] IMPRESSION: 1. Prominent fluid in the small bowel along with transverse and left colon wall thickening may reflect an enterocolitis in the appropriate clinical setting. 2. Prostate gland somewhat enlarged. 3. Right lower lobe atelectasis. 4. Mild cardiomegaly. 5. Hepatic steatosis.
[2022-05-21 20:01] LABS: Alanine Aminotransferase 31 U/L (0-41); Alkaline Phosphatase 73 U/L (40-130); Anion Gap 19.9 (5-19); Aspartate Amino Transferase 17 U/L (0-40); Blood Urea Nitrogen 17 mg/dL (6-20); Calcium 10.4 mg/dL (8.5-10.5); Carbon Dioxide 24 mmol/L (22-29); Chloride 102 mmol/L (98-107); Globulin 2.9 g/dL (1.3-4.6); Glomerular Filtration Rate 92.1 mL/min (90-130); Glucose 127 mg/dL (65-115); Lipase 17 U/L (13-60); Osmolality Calculated 297 mOsm/kg (285-295); Potassium 3.9 mmol/L (3.5-5.1); Sodium 142 mmol/L (136-145); Total Bilirubin 0.4 mg/dL (0.15-1.2); Total Protein 7.9 g/dL (6.6-8.7)
[2022-05-21] MEDS: iohexol 350 mg/mL 500 mL Btl (per mL) IV (20:12)
[2022-05-21] MEDS: haloperidol inj 5 mg/mL INJ 1 mL IVP (20:18)
[2022-05-21 20:27] VITALS: BP 132/79; PULSE 63; O2SAT 95
[2022-05-21 21:03] LABS: Add Urine Microscopic? NO; Charge for UA Resulting for Rev
[2022-05-21 21:10] LABS: Bilirubin Urine Neg (Negative); Blood Urine Neg (Negative); Glucose Urine UA Norm (Normal); Ketones Urine 1+ (Negative); Leukocyte Esterase Urine Negative (Negative); Nitrate Urine Negative (Negative); Protein Urine Neg (Negative); Urine Appearance Clear (CLEAR); Urine Color Yellow (Yellow); Urobilinogen Urine Norm (Negative); pH Urine 7 (5-7)
[2022-05-21] MEDS: LORazepam 2 mg/mL INJ 1 mL 1 MG IVP (21:24)
[2022-05-21 21:27] VITALS: BP 129/75; PULSE 78; O2SAT 96
== END 2022-05-21 21:55 | disposition home or self-care (01) ==
PROVIDERS: Emergency Provider Emergency Medicine; PCP Family Medicine
DX: E78.5 Hyperlipidemia, unspecified (principal); Z87.891 Personal history of nicotine dependence
CPT/HCPCS: 36415; 74177; 80053; 81003; 83690; 85025; 96361; 96374; 96375; 99285; J1200; J1630; J2060; J2270; J2765; J7030; Q9967

== ENCOUNTER 2022-05-23 13:13 | Emergency (ER) | payer MEDICARE, OTHER, SELFPAY ==
[2022-05-23 13:16] VITALS: BP 196/93; PULSE 58; RESP 20; TEMP 36.6; O2SAT 99; BMI 33.6
--- NOTE | 2022-05-23 13:16 | W.ED.NAVMDI ---
HPI - Nausea/Vomiting/Diarrhea General: Chief complaint: Nausea/Vomiting/Diarrhea Stated complaint: N/V Time Seen by Provider: 05/23/22 13:16 History of Present Illness: 41-year-old gentleman presenting to the emergency department for recurrence of abdominal pain with nausea and vomiting. He was seen 3 days ago for similar symptoms and had improvement though symptoms have recurred. Intensity is moderate to severe. Worse with eating. No other specific changes in health, exacerbating, or alleviating factors identified. Onset (ago): day(s) Description of vomiting: watery Associated nausea: Yes Associated abdominal pain: Yes Location of pain: Diffuse Severity: moderate Quality: cramping and aching Exacerbating factors: eating Relieving factors: none Associated symtoms: Reports nausea Treatment prior to arrival: other Review of Systems General: Reports: 10 or more systems reviewed and unremarkable except in HPI and below GI: Reports: nausea PFSH ED PFSH: Medical History Agoraphobia with panic attacks Anxiety disorder Hyperlipidemia Major depressive disorder PTSD (post-traumatic stress disorder) Surgical History History of appendectomy History of colonoscopy History of tonsillectomy Family History Denies family history of CAD (coronary artery disease) Anesthesia complication Bleeding disorder Family history of premature coronary artery disease Social History Smoking and tobacco status: former smoker Alcohol intake: current Alcohol intake frequency: holidays/special occasions only Physical Exam Const: COMMON NORMALS: alert GENERAL APPEARANCE: cooperative and well developed HENMT: COMMON NORMALS: normocephalic and atraumatic HEAD & SCALP: normocephalic and atraumatic Eye: COMMON NORMALS: conjunctivae normal CONJUNCTIVA: Yes conjunctivae normal SCLERA: sclerae normal Neck/C-Spine: COMMON NORMALS: supple GENERAL: Yes trachea midline Resp: COMMON NORMALS: clear to auscultation bilaterally EFFORT & INSPECTION: Yes able to speak in complete sentences AUSCULTATION: clear to auscultation bilaterally Cardio: COMMON NORMALS: regular rate and regular rhythm RATE: regular rate RHYTHM: regular rhythm GI: COMMON NORMALS: Soft to palpation PALPATION: Yes Soft to palpation, Yes Tenderness to palpation present (GI), No Guarding due to palpation present (GI) and No Rigid due to palpation PERCUSSION: normal to percussion Extremity: GENERAL: Yes normal exam except as noted and No edema Neuro: COMMON NORMALS: moves all extremities SENSORIUM/ORIENTATION: Yes alert and No Orientation impaired Psych: COMMON NORMALS: mental status grossly normal and Normal thought process present THOUGHT PROCESS: Normal thought process present Course Vital Signs: Vital signs: Vital Signs Temperature 97.9 F 05/23/22 13:16 Pulse Rate 54 L 05/23/22 18:12 Respiratory Rate 16 05/23/22 18:12 Blood Pressure 158/68 05/23/22 16:12 Pulse Oximetry 97 05/23/22 18:12 Oxygen Delivery Me thod 05/23/22 18:12 MDM - Nausea/Vomiting/Diarrhea Medical Decision Making 41-year-old gentleman presenting with nausea, vomiting, abdominal pain. Labs notable for leukocytosis which is improved from prior, dehydration with mild hypokalemia. Prior imaging reviewed. Patient treated with IV fluids and numerous antiemetics with recurrence of symptoms on reassessment. Given recurrence and continued findings repeat CT obtained and negative for intra-abdominal pathology, prior findings have resolved. Patient improved with additional medications and able to tolerate p.o. intake. The results of ED evaluation were discussed with the patient including prescriptions and/or symptomatic cares (if applicable) including appropriate and responsible use, followup plan, and return precautions. The patient verbalized understanding and felt safe for discharge. Medical Records I reviewed the patient's medical records. Lab Data I reviewed the patient's lab results. 05/23/22 13:45 05/23/22 13:45 Radiology Impressions Abdomen/Pelvis CT 05/23/22 16:14 IMPRESSION: No acute intra-abdominal or intrapelvic pathology. Laboratory Results WBC 13.0 10^3/uL (4.0-10.0) H 05/23/22 13:45 RBC 4.82 10^6/uL (4.1-5.3) 05/23/22 13:45 Hgb 15.4 g/dL (11.7-16.6) 05/23/22 13:45 Hct 45.8 % (42.0-52.0) 05/23/22 13:45 MCV 95.0 fl (80-94) H 05/23/22 13:45 MCH 32.0 pg (28.0-34.0) 05/23/22 13:45 MCHC 33.6 g/dL (30.0-36.0) 05/23/22 13:45 RDW 12.1 % (12.1-15.1) 05/23/22 13:45 Plt Count 233 10^3/cmm (130-400) 05/23/22 13:45 MPV 10.3 fL (7.4-10.4) 05/23/22 13:45 Neut % (Auto) 76.7 % 05/23/22 13:45 Lymph % (Auto) 17.3 % 05/23/22 13:45 [place] % (Auto) 4.5 % 05/23/22 13:45 Eos % (Auto) 0.4 % 05/23/22 13:45 Baso % (Auto) 0.4 % 05/23/22 13:45 Neut # (Auto) 9.95 10^3/uL (1.8-7.7) H 05/23/22 13:45 Lymph # (Auto) 2.3 10^3/uL (0.8-4.8) 05/23/22 13:45 [place] # (Auto) 0.6 10^3/uL (0.2-0.9) 05/23/22 13:45 Eos # (Auto) 0.1 10^3/uL (0.0-0.8) 05/23/22 13:45 Baso # (Auto) 0.1 10^3/uL (0.0-0.1) 05/23/22 13:45 Nucleated RBC % (auto) 0 % 05/23/22 13:45 Nucleated RBCs # 0.0 /100WBC 05/23/22 13:45 Sodium 139 mmol/L (136-145) 05/23/22 13:45 Potassium 3.4 mmol/L (3.5-5.1) L 05/23/22 13:45 Chloride 102 mmol/L (98-107) 05/23/22 13:45 Carbon Dioxide 24 mmol/L (22-29) 05/23/22 13:45 Anion Gap 16.4 (5-19) 05/23/22 13:45 BUN 19 mg/dL (6-20) 05/23/22 13:45 Creatinine 0.9 mg/dL (0.7-1.2) 05/23/22 13:45 GFR Calculation 92.1 mL/min (90-130) 05/23/22 13:45 Glucose 101 mg/dL (65-115) 05/23/22 13:45 Calculated Osmolality 290 mOsm/kg (285-295) 05/23/22 13:45 Calcium 9.2 mg/dL (8.5-10.5) 05/23/22 13:45 Total Bilirubin 0.6 mg/dL (0.15-1.2) 05/23/22 13:45 AST 18 U/L (0-40) 05/23/22 13:45 ALT 30 U/L (0-41) 05/23/22 13:45 Alkaline Phosphatase 68 U/L (40-130) 05/23/22 13:45 Total Protein 7.2 g/dL (6.6-8.7) 05/23/22 13:45 Albumin 4.4 g/dL (3.5-5.2) 05/23/22 13:45 Globulin 2.8 g/dL (1.3-4.6) 05/23/22 13:45 Discharge Plan Discharge Patient Disposition: Home Clinical Impression: Nausea and vomiting, Dehydration, Abdominal pain, Hypokalemia Condition: Stable Prescriptions: New promethazine 25 mg tablet 25 mg PO TID PRN (Reason: nausea and vomiting) Qty: 20 0RF No Action clonazepam 0.5 mg tablet 0.5 mg PO DAILY lidocaine 5 % adhesive patch,medicated 1 patch topical DAILY Rx Instructions: leave on most painful area for up to 12 hrs trazodone 100 mg tablet 150 mg PO DAILY ondansetron 4 mg tablet,disintegrating 4 mg PO Q8H PRN (Reason: nausea and vomiting) Qty: 20 0RF promethazine 50 mg tablet 50 mg PO TID PRN (Reason: nausea and vomiting) Qty: 20 0RF dicyclomine 20 mg tablet 20 mg PO TID PRN (Reason: Abdominal cramping pain) Qty: 20 0RF Discharge Orders: Discharge ED (Routine); Ordered 05/23/22 Ordered By: Jc Kolm Referrals: Lexie Crenshaw MD [Primary Care Provider] - Discharge Diet: Clear Liquid Discharge Activity: Increase activity as tolerated Patient Instructions: Hypokalemia (ED), Acute Nausea and Vomiting (ED), Abdominal Pain (ED), Opioid Safety Activity Restrictions/Additional Instructions: Thank you for visiting the emergency department. You were seen and evaluated for continued nausea and vomiting with abdominal pain. Despite symptoms your laboratory studies and CT appear improved. We are pleased that you had some degree of improvement with treatment in the emergency department. I will prescribe a short course of pain medication, use this cautiously as it is an opioid. I will also prescribe a different antinausea medication. Do not take this at the same time as the oxycodone or previously prescribed Reglan or Zofran. Please follow up with a primary care provider. Return for uncontrolled symptoms or anything else that you are concerned about and feel needs ED evaluation. Coding Level of Care Code ED Deli Department Manager for Neri Singh
[2022-05-23] MEDS: sodium chloride 0.9% 1,000 ML 999 ML IV ×2 (13:42→14:50)
[2022-05-23] MEDS: metoclopramide 5 mg/mL SDV 2 mL 10 MG IVP (13:42)
[2022-05-23] MEDS: diphenhydrAMINE 50 mg/mL SDV 1mL 12.5 MG IVP (13:43)
[2022-05-23] MEDS: haloperidol inj 5 mg/mL INJ 1 mL IVP (14:01)
[2022-05-23 14:08] LABS: Basophils # 0.1 10^3/uL (0.0-0.1); Basophils % 0.4 %; Eosinophils # 0.1 10^3/uL (0.0-0.8); Eosinophils % 0.4 %; Hematocrit 45.8 % (42.0-52.0); Hemoglobin 15.4 g/dL (11.7-16.6); Lymphocytes # 2.3 10^3/uL (0.8-4.8); Lymphocytes % 17.3 %; Mean Corpuscular HGB Conc 33.6 g/dL (30.0-36.0); Mean Platelet Volume 10.3 fL (7.4-10.4); Monocytes # 0.6 10^3/uL (0.2-0.9); Monocytes % 4.5 %; Neutrophils # 9.95 10^3/uL (1.8-7.7); Neutrophils % 76.7 %; Nucleated Red Blood Cells % 0 %; Platelet Count 233 10^3/cmm (130-400); Red Blood Count 4.82 10^6/uL (4.1-5.3); Red Cell Distribution Width 12.1 % (12.1-15.1)
[2022-05-23] MEDS: LORazepam 2 mg/mL INJ 1 mL 1 MG IVP (14:14)
[2022-05-23 14:29] LABS: Alanine Aminotransferase 30 U/L (0-41); Albumin Level 4.4 g/dL (3.5-5.2); Alkaline Phosphatase 68 U/L (40-130); Aspartate Amino Transferase 18 U/L (0-40); Blood Urea Nitrogen 19 mg/dL (6-20); Calcium 9.2 mg/dL (8.5-10.5); Carbon Dioxide 24 mmol/L (22-29); Chloride 102 mmol/L (98-107); Globulin 2.8 g/dL (1.3-4.6); Glomerular Filtration Rate 92.1 mL/min (90-130); Glucose 101 mg/dL (65-115); Osmolality Calculated 290 mOsm/kg (285-295); Sodium 139 mmol/L (136-145); Total Bilirubin 0.6 mg/dL (0.15-1.2); Total Protein 7.2 g/dL (6.6-8.7)
[2022-05-23] MEDS: morphine 4 mg/mL SDV 1 mL IVP (14:58)
[2022-05-23 15:00] LABS: Anion Gap 16.4 (5-19); Potassium 3.4 mmol/L (3.5-5.1)
[2022-05-23 15:31] VITALS: BP 162/87; PULSE 72; RESP 14; O2SAT 97
[2022-05-23] MEDS: ondansetron 2 mg/ML SDV 2 mL 4 MG IVP (15:32)
--- NOTE | 2022-05-23 15:49 | PC.NURSE ---
Nurse went to do zofran IV push and patient was resting comfortable. Patient rated 0 on FLACC scale. Nurse woke patient up and asked if he is in pain. Patient stated the morphine push that was done at 1500 helped and he was not in pain anymore.
[2022-05-23] MEDS: potassium chloride ER 20 mEq Tablet 40 MEQ PO (16:05)
[2022-05-23 16:12] VITALS: BP 158/68; PULSE 68; O2SAT 100
--- NOTE | 2022-05-23 16:14 | CTR_ITS ---
PROCEDURE INFORMATION: Exam: CT Abdomen And Pelvis With Contrast Exam date and time: 05/23/2022 4:59 PM Age: 41 years old Clinical indication: Abdominal pain; Prior surgery; Surgery type: Appy; Additional info: Abd pain, n/v TECHNIQUE: Imaging protocol: Computed tomography of the abdomen and pelvis with contrast. Radiation optimization: All CT scans at this facility use at least one of these dose optimization techniques: automated exposure control; mA and/or kV adjustment per patient size (includes targeted exams where dose is matched to clinical indication); or iterative reconstruction. Contrast material: OMNI 350; Contrast volume: 100 ml; Contrast route: INTRAVENOUS (IV); REPORTING DATA: Count of CT and Cardiac NM exams in prior 12 months: This patient has received [address] and 0 known cardiac nuclear medicine studies in the 12 months prior to the current study. COMPARISON: CT abdomen pelvis w con* [id number] 05/21/2022 8:06 PM RADIATION DOSE METRICS: Total DLP (mGy-cm): 770.48 FINDINGS: Lungs: Streaky atelectasis noted in the right lower lung. Tiny calcified granulomas noted in the right lower lobe. No consolidation. Liver: Normal. No mass. Gallbladder and bile ducts: Normal. No calcified stones. No ductal dilation. Pancreas: Normal. No ductal dilation. Spleen: Normal. No splenomegaly. Adrenal glands: Normal. No mass. Kidneys and ureters: Normal. No hydronephrosis. Stomach and bowel: Unremarkable. No obstruction. No mucosal thickening. Appendix: There has been an appendectomy. Intraperitoneal space: Unremarkable. No free air. No significant fluid collection. Vasculature: Unremarkable. No abdominal aortic aneurysm. Lymph nodes: Small right hilar calcified lymph nodes noted, likely sequela of previous granulomatous disease. Urinary bladder: Unremarkable as visualized. Reproductive: Unremarkable as visualized. Bones/joints: Unremarkable. No acute fracture. Soft tissues: Unremarkable. CT/CT abdomen pelvis w con* [id number] IMPRESSION: No acute intra-abdominal or intrapelvic pathology.
[2022-05-23] MEDS: dicyclomine 10 mg Capsule PO (16:48)
[2022-05-23] MEDS: ketorolac 30 mg/mL INJ 15 MG IVP (16:48)
[2022-05-23] MEDS: iohexol 350 mg/mL 500 mL Btl (per mL) IV (17:02)
[2022-05-23] MEDS: promethazine 25 mg/mL SDV 1 mL IM (18:11)
[2022-05-23 18:12] VITALS: PULSE 54; RESP 16; O2SAT 97
== END 2022-05-23 18:10 | disposition home or self-care (01) ==
PROVIDERS: Emergency Provider Emergency Medicine; PCP Family Medicine
DX: R10.9 Unspecified abdominal pain (principal); R11.2 Nausea with vomiting, unspecified; E86.0 Dehydration; E87.6 Hypokalemia; E78.5 Hyperlipidemia, unspecified; Z87.891 Personal history of nicotine dependence
CPT/HCPCS: 74177; 80053; 85025; 96361; 96372; 96374; 96375; 99285; J1200; J1630; J1885; J2060; J2270; J2405; J2550; J2765; J7030; Q9967

== ENCOUNTER 2022-05-29 13:40 | Emergency (ER) | payer MEDICARE, OTHER, SELFPAY ==
[2022-05-29 13:48] VITALS: BP 163/91; PULSE 105; RESP 26; TEMP 36.7; O2SAT 100; BMI 32.2
[2022-05-29 14:24] VITALS: PULSE 100; RESP 24
--- NOTE | 2022-05-29 14:27 | W.ED.NAVMDI ---
HPI - Nausea/Vomiting/Diarrhea General: Chief complaint: Abdominal Pain Stated complaint: N/V Time Seen by Provider: 05/29/22 14:21 History of Present Illness: Patient is a 41-year-old male comes to the ED with nausea and vomiting and abdominal pain. Symptoms have been going on now for the past several weeks. He was seen here in the ED for same complaint back on May 21 May 23. He has had 2 CTs of the abdomen between his last 2 visits here in the ED and both showed no acute findings. Today he states that he is having 10 out of 10 pain all throughout his abdomen. He was up all last night dry heaving and says he cannot stop vomiting. He is having trouble keeping any food or fluids down. Denies any worsening or improving factors. Patient does state that he is a daily marijuana user. Associated nausea: Yes Associated symtoms: Reports nausea; Denies change in vision, chest pain, dysuria, fatigue, headache(s) or palpitations Review of Systems Const: Denies: fever(s), chills or fatigue Eyes: Denies: change in vision or eye discomfort ENMT: Denies: throat pain, odynophagia, nasal discharge or nasal congestion Card: Denies: chest pain, palpitations, edema, swelling of feet/ankles, dyspnea on exertion or orthopnea Resp: Denies: dyspnea, productive cough or non-productive cough GI: Reports: nausea, vomiting and GI cramping; Denies: diarrhea, constipation or hematochezia : Denies: flank pain, difficulty urinating, dysuria or hematuria Musc: Denies: neck pain, back pain or extremity swelling Skin/Breast: Denies: rash or new lesions Neuro: Denies: headache(s), numbness in extremities or weakness in extremities PFS ED PFSH: Medical History Agoraphobia with panic attacks Anxiety disorder Hyperlipidemia Major depressive disorder PTSD (post-traumatic stress disorder) Surgical History History of appendectomy History of colonoscopy History of tonsillectomy Family History Denies family history of CAD (coronary artery disease) Anesthesia complication Bleeding disorder Family history of premature coronary artery disease Social History Smoking and tobacco status: former smoker Alcohol intake: current Alcohol intake frequency: holidays/special occasions only Physical Exam Narrative: EXAM NARRATIVE: On exam in the room patient was pacing around room and hyper ventilating and gagging. Const: COMMON NORMALS: patient oriented x3 HENMT: COMMON NORMALS: normocephalic HEAD & SCALP: normocephalic MOUTH: Normal oral and palatal mucosa present THROAT: posterior oropharynx normal and uvula midline Neck/C-Spine: COMMON NORMALS: supple GENERAL: Yes normal visual inspection Resp: COMMON NORMALS: normal respiratory effort, No retractions, No use of accessory muscles and clear to auscultation bilaterally AUSCULTATION: clear to auscultation bilaterally Cardio: COMMON NORMALS: regular rate, regular rhythm, S1 normal heart sound present, S2 normal heart sound present, No gallops present (Cardio), No clicks present (Cardio), No murmurs present (Cardio) and Peripheral pulses 2+ throughout RATE: regular rate RHYTHM: regular rhythm HEART SOUNDS: S1 normal heart sound present and S2 normal heart sound present PERIPHERAL PULSES: Peripheral pulses 2+ throughout GI: COMMON NORMALS: Normal to inspection, nondistended, normoactive bowel sounds present, Soft to palpation, non-tender and no masses PALPATION: Yes Soft to palpation : COMMON NORMALS: Yes no CVA tenderness BLADDER/KIDNEY EXAM: Yes no CVA tenderness Back/Pelvis: COMMON NORMALS: no CVA tenderness Extremity: COMMON NORMALS: normal to inspection Neuro: COMMON NORMALS: patient oriented x3 GAIT: Yes Normal gait present Skin: GENERAL SKIN EXAM: dry skin Course Vital Signs: Vital signs: Vital Signs Temperature 98.1 F 05/29/22 13:48 Pulse Rate 96 05/29/22 17:27 Respiratory Rate 22 H 05/29/22 14:42 Blood Pressure 106/61 05/29/22 17:27 Pulse Oximetry 92 05/29/22 17:27 Oxygen Delivery Me thod 05/29/22 17:21 MDM - Nausea/Vomiting/Diarrhea Medical Decision Making Patient is a 41-year-old male comes to the ED with nausea and vomiting and abdominal pain. Symptoms have been going on now for the past several weeks. He was seen here in the ED for same complaint back on May 21 May 23. Patient admits to being a chronic marijuana user. Patient's respirations were little elevated at 26 but rest of vitals were stable. Upon exam patient was pacing around room and hyperventilating and gagging. Rest of exam was benign. He had a white count of 16.9 and back on May 21 it was 19.9 and May 23 it was 13. Rest of his labs were unremarkable. Patient was given 2 L of IV fluids and multiple nausea meds given and patient's symptoms improved greatly. He is able to tolerate p.o. fluids here in the ED. Patient diagnosed with cyclic vomiting syndrome likely due to marijuana use. He was stable for discharge home and sent with a prescription for promethazine and dicyclomine. Told to follow-up with his PCP in the next week for reevaluation. Return ED precautions given. Patient understood agree with plan. Lab Data I reviewed the patient's lab results. 05/29/22 14:35 05/29/22 14:35 Laboratory Results WBC 16.9 10^3/uL (4.0-10.0) H 05/29/22 14:35 RBC 5.37 10^6/uL (4.1-5.3) H 05/29/22 14:35 Hgb 16.7 g/dL (11.7-16.6) H 05/29/22 14:35 Hct 49.6 % (42.0-52.0) 05/29/22 14:35 MCV 92.4 fl (80-94) 05/29/22 14:35 MCH 31.1 pg (28.0-34.0) 05/29/22 14:35 MCHC 33.7 g/dL (30.0-36.0) 05/29/22 14:35 RDW 12.4 % (12.1-15.1) 05/29/22 14:35 Plt Count 291 10^3/cmm (130-400) 05/29/22 14:35 MPV 10.6 fL (7.4-10.4) H 05/29/22 14:35 Neut % (Auto) 89.8 % 05/29/22 14:35 Lymph % (Auto) 7.7 % 05/29/22 14:35 [place] % (Auto) 1.9 % 05/29/22 14:35 Eos % (Auto) 0.0 % 05/29/22 14:35 Baso % (Auto) 0.2 % 05/29/22 14:35 Neut # (Auto) 15.20 10^3/uL (1.8-7.7) H 05/29/22 14:35 Lymph # (Auto) 1.3 10^3/uL (0.8-4.8) 05/29/22 14:35 [place] # (Auto) 0.3 10^3/uL (0.2-0.9) 05/29/22 14:35 Eos # (Auto) 0.0 10^3/uL (0.0-0.8) 05/29/22 14:35 Baso # (Auto) 0.0 10^3/uL (0.0-0.1) 05/29/22 14:35 Nucleated RBC % (auto) 0 % 05/29/22 14:35 Nucleated RBCs # 0.0 /100WBC 05/29/22 14:35 Sodium 139 mmol/L (136-145) 05/29/22 14:35 Potassium 4.4 mmol/L (3.5-5.1) 05/29/22 14:35 Chloride 100 mmol/L (98-107) 05/29/22 14:35 Carbon Dioxide 22 mmol/L (22-29) 05/29/22 14:35 Anion Gap 21.4 (5-19) H 05/29/22 14:35 BUN 17 mg/dL (6-20) 05/29/22 14:35 Creatinine 0.9 mg/dL (0.7-1.2) 05/29/22 14:35 GFR Calculation 92.1 mL/min (90-130) 05/29/22 14:35 Glucose 122 mg/dL (65-115) H 05/29/22 14:35 Calculated Osmolality 291 mOsm/kg (285-295) 05/29/22 14:35 Calcium 10.4 mg/dL (8.5-10.5) 05/29/22 14:35 Total Bilirubin 0.6 mg/dL (0.15-1.2) 05/29/22 14:35 AST 17 U/L (0-40) 05/29/22 14:35 ALT 31 U/L (0-41) 05/29/22 14:35 Alkaline Phosphatase 69 U/L (40-130) 05/29/22 14:35 Total Protein 8.1 g/dL (6.6-8.7) 05/29/22 14:35 Albumin 5.1 g/dL (3.5-5.2) 05/29/22 14:35 Globulin 3.0 g/dL (1.3-4.6) 05/29/22 14:35 Lipase 26 U/L (13-60) 05/29/22 14:35 Urine Color Yellow (Yellow) 05/29/22 15:40 Urine Appearance Clear (CLEAR) 05/29/22 15:40 Urine pH 9 (5-7) H 05/29/22 15:40 Ur Specific [place] 1.020 (1.005-1.030) 05/29/22 15:40 Urine Protein Neg (Negative) 05/29/22 15:40 Urine Glucose (UA) Norm (Normal) 05/29/22 15:40 Urine Ketones 1+ (Negative) H 05/29/22 15:40 Urine Blood Neg (Negative) 05/29/22 15:40 Urine Nitrate Negative (Negative) 05/29/22 15:40 Urine Bilirubin Neg (Negative) 05/29/22 15:40 Prot Sulfosalicylic Acd Negative (Negative) 05/29/22 15:40 Urine Urobilinogen Norm mg/dL (Negative) 05/29/22 15:40 Ur Leukocyte Esterase Negative (Negative) 05/29/22 15:40 Discharge Plan Discharge Patient Disposition: Home Clinical Impression: Cyclic vomiting syndrome Condition: Stable Prescriptions: New promethazine 50 mg tablet 50 mg PO TID PRN (Reason: nausea and vomiting) Qty: 20 0RF dicyclomine 20 mg tablet 20 mg PO TID PRN (Reason: Abdominal cramping pain) Qty: 20 0RF No Action clonazepam 0.5 mg tablet 0.5 mg PO DAILY lidocaine 5 % adhesive patch,medicated 1 patch topical DAILY Rx Instructions: leave on most painful area for up to 12 hrs trazodone 100 mg tablet 150 mg PO DAILY ondansetron 4 mg tablet,disintegrating 4 mg PO Q8H PRN (Reason: nausea and vomiting) Qty: 20 0RF promethazine 25 mg tablet 25 mg PO TID PRN (Reason: nausea and vomiting) Qty: 20 0RF Discharge Orders: Discharge ED (Routine); Ordered 05/29/22 Ordered By: Manish Ray Referrals: Lexie Crenshaw MD [Primary Care Provider] - Discharge Diet: Advance as tolerated and Clear Liquid Discharge Activity: Increase activity as tolerated Activity Restrictions/Additional Instructions: Follow-up with medical provider as directed in the next 3 to 5 days for reevaluation. Clear liquid diet for the next 24 hours and slowly advance diet as tolerated. Take medications as prescribed. Return to the ER or your medical provider if condition worsens. Please read and understand discharge instructions. Thank you for choosing [facility] for your healthcare needs today. Please realize this is an emergency room and that we are providing you with a medical screening exam and this may not be complete and all inclusive of all the testing and or work up that you may need to determine your ailment or severity of your illness. It is very important that you follow up as instructed or that you return to the Emergency Department should you have concerns or if your condition changes or worsens in any way. Coding Level of Care Code ED Resource Specialist Teacher for Neri Singh
[2022-05-29 14:30] VITALS: RESP 22
[2022-05-29 14:42] VITALS: RESP 22
[2022-05-29] MEDS: morphine 4 mg/mL SDV 1 mL IVP (14:42)
[2022-05-29] MEDS: metoclopramide 5 mg/mL SDV 2 mL 10 MG IVP (14:42)
[2022-05-29] MEDS: sodium chloride 0.9% 1,000 ML 999 ML IV ×2 (14:42→15:38)
[2022-05-29 14:54] LABS: Basophils % 0.2 %; Hematocrit 49.6 % (42.0-52.0); Hemoglobin 16.7 g/dL (11.7-16.6); Lymphocytes # 1.3 10^3/uL (0.8-4.8); Lymphocytes % 7.7 %; Mean Corpuscular HGB Conc 33.7 g/dL (30.0-36.0); Mean Corpuscular Hemoglobin 31.1 pg (28.0-34.0); Mean Corpuscular Volume 92.4 fl (80-94); Mean Platelet Volume 10.6 fL (7.4-10.4); Monocytes # 0.3 10^3/uL (0.2-0.9); Monocytes % 1.9 %; Neutrophils % 89.8 %; Nucleated Red Blood Cells % 0 %; Platelet Count 291 10^3/cmm (130-400); Red Blood Count 5.37 10^6/uL (4.1-5.3); Red Cell Distribution Width 12.4 % (12.1-15.1); White Blood Count 16.9 10^3/uL (4.0-10.0)
[2022-05-29] MEDS: haloperidol inj 5 mg/mL INJ 1 mL IVP (14:57)
[2022-05-29 15:16] LABS: Alanine Aminotransferase 31 U/L (0-41); Albumin Level 5.1 g/dL (3.5-5.2); Alkaline Phosphatase 69 U/L (40-130); Anion Gap 21.4 (5-19); Aspartate Amino Transferase 17 U/L (0-40); Blood Urea Nitrogen 17 mg/dL (6-20); Calcium 10.4 mg/dL (8.5-10.5); Carbon Dioxide 22 mmol/L (22-29); Chloride 100 mmol/L (98-107); Glomerular Filtration Rate 92.1 mL/min (90-130); Glucose 122 mg/dL (65-115); Lipase 26 U/L (13-60); Osmolality Calculated 291 mOsm/kg (285-295); Potassium 4.4 mmol/L (3.5-5.1); Sodium 139 mmol/L (136-145); Total Bilirubin 0.6 mg/dL (0.15-1.2); Total Protein 8.1 g/dL (6.6-8.7)
[2022-05-29 15:42] LABS: Add Urine Microscopic? NO; Charge for UA Resulting for Rev
[2022-05-29 16:06] LABS: Bilirubin Urine Neg (Negative); Blood Urine Neg (Negative); Glucose Urine UA Norm (Normal); Ketones Urine 1+ (Negative); Leukocyte Esterase Urine Negative (Negative); Nitrate Urine Negative (Negative); Protein Urine Neg (Negative); Sulfosalicylic Acid Urine Negative (Negative); Urine Appearance Clear (CLEAR); Urine Color Yellow (Yellow); Urobilinogen Urine Norm (Negative); pH Urine 9 (5-7)
[2022-05-29] MEDS: morphine 4 mg/mL SDV 1 mL 2 MG IVP (16:21)
[2022-05-29] MEDS: ondansetron 2 mg/ML SDV 2 mL 4 MG IVP (16:21)
[2022-05-29] MEDS: LORazepam 2 mg/mL INJ 1 mL 1 MG IVP (16:21)
[2022-05-29 17:21] VITALS: BP 106/61; PULSE 96; O2SAT 92
[2022-05-29 17:27] VITALS: BP 106/61; PULSE 96; O2SAT 92
== END 2022-05-29 17:29 | disposition home or self-care (01) ==
PROVIDERS: Emergency Provider Physician Assistant; PCP Family Medicine
DX: R11.15 Cyclical vomiting syndrome unrelated to migraine (principal)
CPT/HCPCS: 80053; 81003; 83690; 85025; 96361; 96374; 96375; 96376; 99284; J1630; J2060; J2270; J2405; J2765; J7030

== ENCOUNTER 2023-08-16 09:48 | Outpatient (CLI) | payer OTHER, SELFPAY ==
--- NOTE | 2023-08-16 09:51 | US_ITS ---
WS: [id number] RIGHT UPPER QUADRANT ULTRASOUND HISTORY: ELEVATED LFT'S COMPARISON: 07/08/2020 Liver: 14.3 cm in length. Normal size liver. The entire liver is not well visualized. Focal fatty spa ring adjacent to the gallbladder. No intrahepatic dilatation. No mass. Portal Vein: Normal hepatopetal flow with monophasic waveform. Gallbladder: Normally distended gallbladder with no stones or wall thickening. CBD: 0.5 cm Pancreas: Not visualized. Right kidney: 11.8 cm in length. Normal size and echogenicity. No hydronephrosis or mass. Aorta and IVC: Limited. No ascites. US/US abdomen limited [id number] IMPRESSION: 1. Technically difficult RIGHT upper quadrant ultrasound. 2. Negative gallbladder. 3. Hepatic steatosis with areas of sparing adjacent to the gallbladder. 4. Normal bile duct. 5. Nonvisualization of the pancreas.
== END 2023-08-16 09:49 | disposition home or self-care (01) ==
LOC: RAD 09:48
PROVIDERS: PCP Family Medicine; Visit Provider Family Medicine
DX: R79.89 Other specified abnormal findings of blood chemistry (principal); K76.0 Fatty (change of) liver, not elsewhere classified
CPT/HCPCS: 76705

== ENCOUNTER → 2024-08-28 13:01 | Outpatient (BNVA) | payer OTHER, SELFPAY | PROVIDERS: PCP Family Medicine; Visit Provider Podiatrist Foot & Ankle Surgery | DX: M79.671 Pain in right foot (principal); M79.672 Pain in left foot; M72.2 Plantar fascial fibromatosis; M20.21 Hallux rigidus, right foot | CPT/HCPCS: 73630; 99204 ==

== ENCOUNTER → 2024-10-16 13:44 | Outpatient (BNVA) | payer OTHER, SELFPAY | PROVIDERS: PCP Family Medicine; Visit Provider Nurse Practitioner | DX: M19.011 Primary osteoarthritis, right shoulder (principal); M75.21 Bicipital tendinitis, right shoulder | CPT/HCPCS: 73030; 99204 ==

== ENCOUNTER 2025-02-15 07:59 | Outpatient (CLI) | payer OTHER, SELFPAY ==
--- NOTE | 2025-02-15 08:00 | IR_ITS ---
WS: [id number] SHOULDER ARTHROGRAM RIGHT Fluoroscopic guided right shoulder arthrogram CLINICAL INFORMATION: M25.511 - Pain in right shoulder COMPARISON: None. PROCEDURE: The procedure including risks, benefits and complications were discussed with the patient, who agreed to proceed. Using sterile technique, the patient was prepped and draped in the usual sterile fashion. After 1% lidocaine injection using fluoroscopic guidance, a 22-gauge spinal needle was advanced into the glenohumeral joint. Approximately 13 ml of a solution containing 10 ml normal saline, 5 ml Omnipaque 240, 5 ml 1% lidocaine, and 0.1 ml gadolinium was administered. No immediate complications. FLUOROSCOPY TIME: 1min [id number] # of spot films: 3 IR/IR arthrogram shoulderRT [id number] IMPRESSION: Uncomplicated fluoroscopic-guided right shoulder arthrogram. MRI to follow.
--- NOTE | 2025-02-15 08:07 | MR_ITS ---
WS: [id number] MRI RIGHT SHOULDER ARTHROGRAM TECHNIQUE: Sagittal T2, coronal T1, T2 and proton density imaging. Axial gradient PDE imaging. Multiplanar imaging post intra-articular administration of gadolinium CLINICAL INFORMATION: Z98.890 - Other specified postprocedural states. History of labral repair. COMPARISON: MRI 2012 FINDINGS: Moderate degenerative changes AC joint with small amount of fluid and edema. Synovial thickening. Mild downsloping acromion with subacromial spurring. Slight impingement on the supraspinatus. Tendinopathy supraspinatus and infraspinatus. Small interstitial tears distally in the supraspinatus and infraspinatus. No tendon retraction. Normal teres minor. Subscapularis tendon is intact. Biceps tendon intact within the bicipital groove. Intra-articular biceps tendon is somewhat diminutive which is new from previous. This is suspicious for interval partial tear. Biceps labral anchor appears intact. Previously described labral tear may have been repaired since 2011. Although persistent irregularity with glenoid remodeling involving the posterior labrum with underlying periosteal irregularity. Recommend correlation with prior surgery. Anterior labrum is normal in appearance. MR/MR shoulder RT wo/w con [id number] IMPRESSION: 1. Moderate degenerative changes AC joint with mild downsloping acromion with subacromial spurring. 2. Impingement on the supraspinatus with tendinopathy supraspinatus and infras pinatus. 3. Small interstitial tears involving the supraspinatus and infraspinatus dist ally although no tendon retraction. 4. Rotator cuff is otherwise intact. 5. Biceps tendon is intact within the bicipital groove. 6. Intra-articular biceps tendon is somewhat diminutive suspicious for prior p artial tear. This is new since 2011 7. Persistent irregularity involving the posterior labrum with underlying bony glenoid remodeling and periosteal irregularity. This is similar in appearance to the prior examination. Recommend correlation with prior labral repair 8. Anterior labrum is normal in appearance.
[2025-02-15] MEDS: gadobenate dimeglumine 20 mL vial 3 ML IV (09:23)
[2025-02-15] MEDS: iohexol 240 mg/mL 50 mL Btl 20 ML INTRA-ARTI (09:24)
== END 2025-02-15 08:00 | disposition home or self-care (01) ==
LOC: RAD 08:03
PROVIDERS: Visit Provider Nurse Practitioner
DX: Z98.890 Other specified postprocedural states (principal); M19.011 Primary osteoarthritis, right shoulder; M25.711 Osteophyte, right shoulder; M75.41 Impingement syndrome of right shoulder; R93.89 Abnormal findings on diagnostic imaging of other specified body structures; M75.101 Unspecified rotator cuff tear or rupture of right shoulder, not specified as traumatic
CPT/HCPCS: 23350; 73223; 77002; A9577; J9999; Q9966

== ENCOUNTER → 2025-02-26 13:52 | Outpatient (BNVA) | payer OTHER, SELFPAY | PROVIDERS: PCP Family Medicine; Visit Provider Podiatrist Foot & Ankle Surgery | DX: L60.3 Nail dystrophy (principal) | CPT/HCPCS: 99213 ==